=== PATIENT | male | born 1960 | race African-American/Black ===

== ENCOUNTER 2019-03-04 09:19 | Inpatient (IN) ==
[2019-03-04] MEDS: LOPRESSOR PO SCH ×2 (09:15→21:23)
[2019-03-04] MEDS: NORVASC PO SCH (09:15)
[~2019-03-04 09:19] MED LIST: ZOFRAN IV PRN
[2019-03-04 10:12] LABS: BASO# 0.02 X1000 (0.0-0.2); BASO% 0.4 % (0.0-0.8); EOS# 0.14 X1000 (0.0-0.7); HEMATOCRIT 40.9 % (42.0-52.0); HEMOGLOBIN 14.1 g/dL (14.0-18.0); LYMPH# 1.65 X1000 (1.2-3.4); LYMPH% 35.5 % (20.5-51.1); MCH 31.5 PG (27-31); MCHC 34.5 g/dL (33-37); MCV 91.3 FL (81-99); MONO# 0.48 X1000 (0.11-0.59); MONO% 10.3 % (1.7-9.3); NEUT# 2.36 X1000 (1.4-6.5); NEUT% 50.8 % (42.2-75.2); PLT 126 X1000 (130-400); RBC 4.48 XMIL (4.7-6.1); RDW 12.5 % (11.5-14.5); WBC 4.65 X1000 (4.8-10.8)
[2019-03-04 10:27] LABS: INR 1.06; PROTIME 14.6 Seconds (11.0-16.0); PTT 29.1 Seconds (22.3-41.8)
[2019-03-04 10:46] LABS: AGAP 12; ALB/GLOB RATIO 0.8; ALBUMIN 3.6 g/dL (3.5-5.0); ALKALINE PHOSPHATASE 135 U/L (32-122); BUN 9 mg/dL (8-22); CALCIUM 8.8 mg/dL (8.8-10.2); CHLORIDE 104 mmol/L (98-107); COSMO 279; CREATININE 0.6 mg/dL (0.7-1.2); ESTIMATED GFR > 60; GLUCOSE 142 mg/dL (70-104); GOT 65 U/L (10-34); GPT 51 U/L (10-44); POTASSIUM 3.8 mmol/L (3.5-5.1); SODIUM 139 mmol/L (136-145); TCO2 23 mmol/L (25-35); TOTAL BILIRUBIN 0.39 mg/dL (0.20-1.00); TOTAL PROTEIN 8.2 g/dL (6.3-8.3)
[2019-03-04] MEDS: NS 1,000 ML IV SCH (12:05)
[2019-03-04] MEDS: HUMALOG SUBQ SCH ×4 (12:09→21:17)
--- NOTE | 2019-03-04 15:40 | HISTORY AND PHYSICAL ---
PRIMARY CARE PHYSICIAN: Patient's primary care is at the [facility]. CHIEF COMPLAINT: "I need my liver checked." HISTORY OF PRESENT ILLNESS: This is a 58-year-old gentleman with a history of diabetes mellitus, hypertension, left lower pole mass who presents as a direct admit per Dr. Hernandez who has been following the patient at the [facility]. The patient is a very poor historian. Mr. Solorio has a history of left lower pole mass that has been followed since looks like 2016 at the [facility] as well as Dr. Recinos. He underwent a CT of the abdomen and pelvis with and without contrast on 02/19/2019 which revealed a new suspicious mass at the anterior interlobar liver, highly concerning for primary hepatocellular carcinoma as well as enlargement of the left renal mass and advanced cirrhosis. At the time of my interview, he sitting in the emergency room, eating breakfast. He denies any pain. He denies any nausea, vomiting, or any change in his health. In reviewing the patient's past history, in October 2018. He had a hepatitis panel drawn which revealed a negative hepatitis B surface antigen with a hepatitis B core IgM reactive, hepatitis C antibody reactive with HCV by PCR [id number]. He denies any knowledge of having hepatitis. He also denies any IV drug use, any surgeries or any blood transfusions in the past. PAST MEDICAL HISTORY: 1. Left lower pole renal mass. 2. Hypertension. 3. Diabetes mellitus. SOCIAL HISTORY: He denies any alcohol, tobacco, or illicit drug use. ALLERGIES: No known drug allergies. HOME MEDICATIONS: 1. Tylenol 650 q.4 h. p.r.n. 2. Norvasc 10 mg p.o. daily. 3. Metformin 500 mg p.o. daily. 4. Metoprolol succinate 50 mg p.o. daily. REVIEW OF SYSTEMS: Discussed with patient with pertinent positives stated in the HPI. He denied any syncope, dizziness, chest pain, palpitations, any fevers, chills, night sweats, recent weight loss or weight gain, any nausea, vomiting, diarrhea, constipation, black or bloody vomitus or stools, cough, shortness of breath, PND, orthopnea, hematuria, dysuria, frequency, urgency. PHYSICAL EXAMINATION: GENERAL: This is a 58-year-old gentleman who is sitting up in the bed in the emergency room in no distress. VITAL SIGNS: Blood pressure is 151/86 with a heart rate of 65, respirations are 18, temperature is 98.1 degrees oral. EYES: Pupils equal, round, react to light. EOMs are intact. Sclerae anicteric. HEENT: Head is normocephalic, atraumatic. Mucous membranes are moist. NECK: Supple. Trachea midline. CARDIOVASCULAR: Regular rate and rhythm. S1 and S2 appreciated. Calves are nontender bilateral with peripheral pulses palpable x4 extremities. PULMONARY: Breath sounds are clear. No increased work of breathing noted. Chest rises and falls symmetric with respiration. GASTROINTESTINAL: Abdomen is soft, nontender, nondistended with bowel sounds in all 4 quadrants. GENITOURINARY: He has no CVA or suprapubic tenderness. SKIN: Warm and dry. NEUROLOGIC: He is alert and oriented x3. ASSESSMENT AND PLAN: 1. Left lower pole renal mass. 2. Possible primary hepatocellular carcinoma. 3. Advanced cirrhosis. 4. Hypertension. 5. Diabetes mellitus type 2. 6. Hepatitis. PLAN: The patient will be admitted to the medical floor. We will continue his home medications. Order CBC, CMP, PT, INR, PTT, CEA as well as alpha fetoprotein marker and urinalysis. He will be NPO after midnight. We will consult Dr. Recinos as well as Dr. Clarisse Cook. He will be placed on pattern blood glucose with sliding scale insulin. Further treatments pending discussion with Dr Rogers and hospital course. Dictated by JAMISON Mcgee for Matthew Rogers MD cc: JAMISON Mcgee MD [facility]
--- NOTE | 2019-03-04 20:33 | CONSULTATION ---
DATE OF CONSULTATION: 03/04/2019 ATTENDING AND REFERRING PHYSICIAN: Hospitalist. HISTORY OF PRESENT ILLNESS: This 58-year-old male has a history of a slowly enlarging left renal mass. He was originally seen in the Urology Clinic when referred from the [facility] in 2015. The mass was noted to be about 3 cm in diameter. The patient has been followed periodically and it has not changed much at all. The patient was seen as a routine followup in mid January 2019. We discussed that he could have the mass removed and would not have to undergo followup studies as often. A CT urogram was obtained that revealed the stable left renal mass at 2.3 x 3.2 cm. Also noted was a liver mass measuring 3.6 x 2.8 cm suspicious for hepatocellular carcinoma. He also has a long history of cirrhosis. His liver function had AST of 57 and ALT of 52. His alpha fetoprotein tumor marker was elevated to 13.9. His CEA was 3.6 both elevated. The patient states he feels well but was advised by the [facility] to come to the hospital for admission. PAST MEDICAL HISTORY: Hypertension, diabetes, cirrhosis. CURRENT MEDICATIONS: Documented on the chart. PAST SURGICAL HISTORY: Teeth extraction. He denies any other surgeries. SOCIAL HISTORY: ETOH use every day use. Tobacco 1/2 to 1 pack a day for many years. ALLERGIES: No known drug allergies. REVIEW OF SYSTEMS: He states overall he feels well. He denies any chest pains, recent pulmonary or bowel problems. He has no voiding complaints. He has had no hematuria. PHYSICAL EXAMINATION: General: A normally developed, well-nourished, age apparent, black male, oriented in all ways and cooperative. HEENT: Normal for age. Lungs: Clear. Cardiovascular: Regular rate and rhythm. Grade 2 holosystolic murmur. Abdomen: Mildly protuberant, soft, nontender. No hepatosplenomegaly or masses. Normal bowel sounds. The liver is not palpable. Genitourinary: Circumcised male. Urethral meatus is normal. Both testes are down and palpably normal. There are no inguinal hernias. Rectal exam in May 2018 had normal sphincter tone. The prostate was about 30 to 40 g, smooth and symmetric. His PSA was 0.39. Extremities: No clubbing, cyanosis, or edema. Neuro: No focal deficits. LABORATORY EVALUATION: Has normal serum electrolytes, BUN 9, creatinine 0.6. His liver functions are noted in the HPI. CT urogram of 02/19/2019 reveals the suspicious liver mass and left renal mass that is stable. IMPRESSION: 1. Left renal mass that is stable. 2. A new right hepatic lobe mass that is suspicious for hepatocellular carcinoma. 3. Cirrhosis. 4. Normal PSA in May 2018. RECOMMEND: A CT-guided needle biopsy of the right hepatic mass. Thank you for this consultation. cc: Clem Recinos MD
[2019-03-04 23:45] LABS: URINE SOURCE CLEAN CATCH
[2019-03-04 23:51] LABS: BILIRUBIN URINE NEGATIVE (NEGATIVE); BLOOD URINE NEGATIVE (NEGATIVE); COLOR YELLOW; GLUCOSE URINE NEGATIVE (NEGATIVE); KETONE URINE NEGATIVE (NEGATIVE); LEUKOCYTES URINE NEGATIVE (NEGATIVE); NITRITE URINE NEGATIVE (NEGATIVE); PH URINE 6.5; PROTEIN URINE NEGATIVE (NEGATIVE); SP GRAVITY URINE 1.009; TURBIDITY URINE CLEAR (CLEAR); UROBILINOGEN URINE NORMAL (NORMAL)
[2019-03-05 00:13] LABS: UR EPITHELIAL CELLS <10 /HPF (<10); URINE BACTERIA NEGATIVE /HPF; URINE RBC <10 /HPF (<10); URINE WBC <10 /HPF (<10)
[2019-03-05 00:14] LABS: URINE CASTS NONE SEEN; URINE CRYSTALS NONE SEEN; URINE SMALL ROUND CELLS NONE SEEN; URINE YEAST NONE SEEN
[2019-03-05] MEDS: NS 1,000 ML IV SCH (05:55)
[2019-03-05] MEDS: HUMALOG SUBQ SCH ×4 (06:45→21:24)
[2019-03-05 07:10] LABS: BASO# 0.02 X1000 (0.0-0.2); BASO% 0.3 % (0.0-0.8); EOS# 0.25 X1000 (0.0-0.7); EOS% 3.3 % (0.0-10.0); HEMATOCRIT 41.9 % (42.0-52.0); HEMOGLOBIN 14.2 g/dL (14.0-18.0); LYMPH% 36.1 % (20.5-51.1); MCH 30.8 PG (27-31); MCHC 33.9 g/dL (33-37); MCV 90.9 FL (81-99); MONO# 0.65 X1000 (0.11-0.59); MONO% 8.7 % (1.7-9.3); MPV 11.2 FL (7.4-10.4); NEUT# 3.85 X1000 (1.4-6.5); NEUT% 51.6 % (42.2-75.2); PLT 108 X1000 (130-400); RBC 4.61 XMIL (4.7-6.1); RDW 12.3 % (11.5-14.5); WBC 7.47 X1000 (4.8-10.8)
[2019-03-05 07:56] LABS: AGAP 11; ALB/GLOB RATIO 0.9; ALBUMIN 3.7 g/dL (3.5-5.0); ALKALINE PHOSPHATASE 90 U/L (32-122); BUN 9 mg/dL (8-22); CALCIUM 9.2 mg/dL (8.8-10.2); CHLORIDE 102 mmol/L (98-107); COSMO 270; CREATININE 0.7 mg/dL (0.7-1.2); ESTIMATED GFR > 60; GLUCOSE 126 mg/dL (70-104); GOT 67 U/L (10-34); GPT 55 U/L (10-44); POTASSIUM 4.3 mmol/L (3.5-5.1); SODIUM 135 mmol/L (136-145); TCO2 22 mmol/L (25-35); TOTAL BILIRUBIN 0.71 mg/dL (0.20-1.00); TOTAL PROTEIN 7.9 g/dL (6.3-8.3)
--- NOTE | 2019-03-05 11:41 | Diag Imaging Result Doc PS360 ---
US GB < RUQ (LIMITED) - 03/05/2019 INDICATION: liver mass TECHNIQUE: COMPARISON: Prior CT and MRI FINDINGS: At the anterior surface of the liver, there is a round heterogeneous hypoechoic mass. This measures 4.4 x 4 cm. Background liver echotexture is extremely hyperechoic and nodular compatible with diffuse hepatocellular disease. There are several tiny gallstones in the gallbladder. No gallbladder distention or inflammation. Common bile duct measures 3.5 mm. The pancreas and right kidney are normal. Aorta, IVC, and main portal vein are patent. IMPRESSION: 1. Liver mass at the anterior surface of the liver. Ultrasound-guided biopsy would probably be the most effective way to biopsy. 2. Several small gallstones in the gallbladder. No gallbladder inflammation. 3. Severely abnormal liver. Electronically signed by Reji Singh 03/05/2019 11:38 AM
[2019-03-05] MEDS: LOPRESSOR PO SCH ×2 (12:00→21:35)
[2019-03-05] MEDS: NORVASC PO SCH (12:00)
--- NOTE | 2019-03-05 18:04 | PROGRESS NOTE ---
DATE: 03/05/2019 SUBJECTIVE: Today Mr. Solorio refers to be doing okay. Does not really have any major complaints. OBJECTIVE: Vital signs: Blood pressure is 140/76, pulse of 56, respirations 20, temperature is 98.6 degrees. The patient is saturating 96% on room air. General: Mr. Solorio is a 58-year-old gentleman. He is in bed, no distress. HEENT: Mucosa is pink and moist. Anicteric. Acyanotic. Neck: Supple. Chest: Clear to auscultation. No crepitations. No rhonchi. Cardiovascular: Regular rate and rhythm. No murmurs. No rubs. No gallops. GI: Abdomen is soft, nontender. Bowel sounds present. Extremities: No pedal edema. [employer]ING [employer]NAGER: Patient is awake, alert, oriented. There is no focal neurological deficit. LABORATORY DATA: WBC 7.47, hemoglobin is 14.2, platelet count of 108,000. Chemistry is also reviewed, unremarkable. IMAGING STUDIES: Ultrasound of the abdomen did show a liver mass at the anterior surface of the liver. The several small gallstones in the gallbladder. Severely abnormal liver. ASSESSMENT: 1. Liver mass on the background of cirrhotic liver. This is concerning for HCC. However, Mr. Solorio also has a left renal mass which is suspicious for malignancy, so we are not 100% sure if this liver mass is a metastatic mass or is a primary hepatic mass (HCC). I think it is reasonable to biopsy this. We will order an ultrasound guided biopsy for tomorrow. Both Hematology/Oncology and Urology have been consulted. 2. Advanced cirrhosis of the liver. Etiologies seem to be multifactorial including chronic hepatitis C and also chronic alcohol abuse. The patient will be advised to follow up with GI. Alcohol cessation has been advised. 3. Left renal mass, which seems to be enlarging on a recent CT scan, suspicious for malignancy. Urology has been consulted. 4. Alcohol abuse. 5. Diabetes mellitus. We will continue with insulin regimen whilst the patient is in the hospital. 6. Hepatitis C. 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 The patient will need to follow up with GI on an outpatient basis. cc: Bruce Balderas MD
--- NOTE | 2019-03-05 18:37 | HEMO/ONC CONSULTATION ---
DATE: 03/05/2019 REQUESTING PHYSICIAN: Hospitalist service. REASON FOR CONSULTATION: Liver mass. HISTORY OF PRESENT ILLNESS: Mr. Solorio is a 58-year-old male, who has been followed at the [facility]. He has a history of a left lower kidney pole mass that has been followed since 2016. During followup of the kidney mass, he underwent a CT scan which revealed him to have a new liver mass in the anterior interlobular region, that was highly concerning for primary hepatocellular carcinoma. He was advised to come to the hospital, and has now been admitted for further evaluation and workup. The patient currently reports that he feels fine and has been completely asymptomatic. PAST MEDICAL HISTORY: 1. Left lower pole renal mass that has been followed since back in 2016. 2. Hypertension. 3. Diabetes mellitus. SOCIAL HISTORY: The patient denies any alcohol, tobacco or illicit drug use. PAST SURGICAL HISTORY: The patient denies any surgical history. FAMILY HISTORY: The patient denies any significant family history of cancer. REVIEW OF SYSTEMS: Twelve-point review of systems has been completed and is negative except for as expressed in the HPI. PHYSICAL EXAMINATION: Vital signs: Temperature 98.9 degrees, heart rate 54, respirations 20, blood pressure 144/71, O2 saturation 98% on room air.General: This is a well- nourished, well- developed, healthy-looking gentleman lying in the hospital bed in no acute distress. HEENT: Head normocephalic, atraumatic. Eyes: Pupils equal, round, reactive. Ears, nose, throat, neck, mouth: Oral mucosa is normal. Gross auditory acuity is intact. Cardiovascular: S1, S2 heard. No murmurs, gallops, rubs appreciated. Bradycardia but regular rhythm. Respiratory: Chest is clear. Normal respiratory effort. Gastrointestinal: Abdomen is soft, nontender, nondistended with normoactive bowel sounds. Extremities: No edema. Neurologic: The patient is alert and oriented with no focal motor deficits. LABORATORY DATA: White blood cells are 7.47, hemoglobin 14.2, hematocrit 41.9, platelet count 108,000. Sodium 135, potassium 4.3, chloride 102, CO2 is 22, BUN 9, creatinine 0.7, glucose 126, AST is 13.9, and CEA is 3.6. DIAGNOSTIC DATA: He also has CT scan results as per above and he has also had an ultrasound which shows a liver mass at the anterior surface of the liver; several small gallstones in the gallbladder; severely abnormal liver. ASSESSMENT AND PLAN: 1. Liver mass. We recommend biopsy. According to the ultrasound report, the mass is accessible via ultrasound-guided biopsy. Follow up on pathology and discuss further treatment options at that time. 2. Left lower pole renal mass. Dr. Recinos has already evaluated the patient. This appears to be overall stable. 3. Hypertension and diabetes mellitus, all per the primary team as far as management while he is in the hospital. We want to thank you for consulting us on Mr. Solorio. We will continue follow along and adjust our treatment plan during his hospital course. Dictated by JENNIFER Babin for Clarisse Cook MD cc: Clarisse Cook MD I have seen and examined the patient and agree with the above note which reflects my history, physical examination, assessment and plan. Clarisse NAM
[2019-03-06] MEDS: NS 1,000 ML IV SCH (06:05)
[2019-03-06] MEDS: HUMALOG SUBQ SCH ×2 (06:06→12:17)
[2019-03-06 07:23] LABS: INR 1.06; PROTIME 14.7 Seconds (11.0-16.0)
[2019-03-06 07:25] LABS: PTT 29.1 Seconds (22.3-41.8)
[2019-03-06 07:46] LABS: AGAP 9; BUN 10 mg/dL (8-22); CALCIUM 8.8 mg/dL (8.8-10.2); CHLORIDE 104 mmol/L (98-107); COSMO 275; CREATININE 0.7 mg/dL (0.7-1.2); ESTIMATED GFR > 60; GLUCOSE 134 mg/dL (70-104); POTASSIUM 4.2 mmol/L (3.5-5.1); SODIUM 137 mmol/L (136-145); TCO2 24 mmol/L (25-35)
[2019-03-06] MEDS ORDERED: LOPRESSOR PO SCH (09:00)
[2019-03-06 09:11] VITALS: BP 143/72
[2019-03-06] MEDS ORDERED: NORCO-5 PO PRN (11:40)
[2019-03-06] MEDS ORDERED: MORPHINE IV ONE (11:40)
[2019-03-06] MEDS: NORVASC PO SCH (11:49)
--- NOTE | 2019-03-06 12:00 | Diag Imaging Result Doc PS360 ---
US LIVER BIOPSY W S/I - 03/06/2019 INDICATION: liver mass in a cirrhotic patient TECHNIQUE: The risks and benefits of the procedure were discussed with the patient. All questions were answered. Written and verbal informed consent was obtained. Overlying skin was prepped and draped in sterile fashion. Anesthesia was achieved with injection of 10 cc of 1% lidocaine. COMPARISON: Ultrasound from 03/05/2019 FINDINGS: The rounded mass at the anterior left lobe was biopsied. 10 biopsy specimens were obtained. The needle was withdrawn intact. The patient reported no symptoms from the procedure. IMPRESSION: Successful and uncomplicated ultrasound-guided liver mass biopsy. Electronically signed by Reji Singh 03/06/2019 11:58 AM
--- NOTE | 2019-03-07 05:25 | DISCHARGE SUMMARY ---
ADMISSION DATE: 03/04/2019 DISCHARGE DATE: 03/06/2019 DISPOSITION: Home. FOLLOW-UP: 1. Dr. Solorzano. 2. Dr. Recinos. CONSULTATION DURING THIS ADMISSION: 1. Urology was consulted, patient was seen by Dr. Recinos. 2. Hematology-Oncology was consulted, patient was seen by Dr. Cook. INVASIVE PROCEDURES DONE DURING ADMISSION: Ultrasound-guided liver mass biopsy was done by IR. IMAGING STUDIES OF SIGNIFICANCE: Ultrasound of the abdomen did show a liver mass at the anterior surface of the liver, severe small gallstones in the bladder, severe abnormal liver. DIAGNOSIS AT ADMISSION: 1. Left lower pole renal mass. 2. Possible primary hepatocellular carcinoma. 3. Advanced cirrhosis. 4. Hypertension. DIAGNOSIS AT TIME OF DISCHARGE: 1. Liver mass on background of cirrhotic liver, concern for hepatocellular carcinoma. 2. Left renal mass, which seems to be enlarging on CT scan, suspicious for malignancy. 3. Advanced cirrhosis of the liver. 4. Hepatitis C. 5. Chronic alcohol abuse. 6. Diabetes mellitus. 7. Asymptomatic cholelithiasis. DISCHARGE MEDICATIONS: 1. Amlodipine 10 mg daily. 2. Metformin 500 p.o. daily. 3. Metoprolol 50 mg p.o. daily. 4. Buhl 5 mg p.o. q.6 hours. PRESENTING COMPLAINT: "I need my liver checked." HISTORY OF PRESENTING COMPLAINT: Mr. Solorio is a 58-year-old gentleman with a history of hepatitis C and chronic alcohol use, who is known to have a left renal mass since 2016, was supposed to follow up with Dr. Recinos. Unfortunately, he has not been following. Had a CT scan outpatient-[place] and was found to have a hepatic mass. The patient was admitted from the [facility] for the liver mass workup. HOSPITAL COURSE: Mr. Solorio was admitted to the medical floor. Was seen by Urology as well as Heme- Onc. A decision was made for a liver biopsy to rule out the primary HCC versus metastatic disease. This was successfully done by IR today. A couple hours later, Mr. Solorio continues to be feeling okay. I was able to reach out to the oncologist on board (Dr. Cook), who is okay that Mr. Solorio can be discharged and follow up with her to review the pathology report at a later date. Mr. Solorio this afternoon feels a lot better. He denies any pain. We think he is okay for discharge. All the discharge instructions have been discussed with him. We have stressed the utmost importance for alcohol cessation and need to follow up with Dr. Cook to review the pathology report and go from there. The patient is also advised to follow up with GI because of the cirrhosis of the liver and hepatitis C. TIME SPENT: For discharge is 36 minutes. cc: Bruce Balderas MD
== END 2019-03-06 15:54 | disposition home or self-care (01) | DRG 437 ==
LOC: 3N 21:39
PROVIDERS: ATTEND Internal Medicine
CPT/HCPCS: 47000; 76705; 76942; 80048; 80053; 81001; 82105; 82378; 82948; 85025; 85610; 85730; 88305; A9270; J1815; J2270; J7030; XXXXX